=== PATIENT | female | born 1980 | race Caucasian/White ===

== ENCOUNTER 2020-06-24 12:48 | Outpatient (CLI) | payer BC, SELFPAY ==
--- NOTE | ~2020-06-24 | MMUS_ITS ---
EXAMINATION: MM diagnostic usman BI w earl, US breast LT limited HISTORY: Palpable lump and pain of the lower inner left breast TECHNIQUE: Craniocaudal, mediolateral, and mediolateral oblique 3-D tomosynthesis images of the breas ts were performed and synthetic 2-D images were generated. CAD analysis was submitted and interpreted . High resolution limited left breast ultrasound was performed. COMPARISON: None, baseline BREAST PARENCHYMAL COMPOSITION: The breasts are heterogeneously dense, which may obscure small masses . FINDINGS: MAMMOGRAPHIC FINDINGS: There is no evidence of suspicious mass, calcification, or architectural distortion in either breast to suggest malignancy. No mammographic correlate is identified for the reported lump and pain of the lower inner left breast. ULTRASOUND: There is no evidence of suspicious solid or cystic mass in the vicinity of the reported palpable abno rmality of concern. Two 5 mm cysts are seen at the 8:00 and 6:00 location seen in the nipple. IMPRESSION: 1. No suspicious mammographic or sonographic correlate is identified for the reported palpable abnorm ality of concern. Further evaluation at this time should be based on clinical assessment. Continued f ollow-up physical examination is recommended. 2. Recommend routine screening mammography beginning at age 40. BI-RADS Category 2: Benign finding(s). Reviewed, dictated and finalized at location A. IMPRESSION: 1. No suspicious mammographic or sonographic correlate is identified for the re ported palpable abnormality of concern. Further evaluation at this time should be based on clinical assessment. Continued follow-up physical examination is re commended. 2. Recommend routine screening mammography beginning at age 40. BI-RADS Category 2: Benign finding(s).
== END 2020-06-24 12:49 | disposition home or self-care (01) ==
PROVIDERS: Visit Provider Nurse Practitioner
DX: N64.4 Mastodynia (principal)
CPT/HCPCS: 76642; 77062; 77066; G0279

== ENCOUNTER 2022-09-13 14:36 | Outpatient (CLI) | payer BC, SELFPAY ==
--- NOTE | ~2022-09-13 | MM_ITS ---
EXAMINATION: MM screening usman BI w earl HISTORY: Screening mammogram TECHNIQUE: Craniocaudal and mediolateral oblique 3-D tomosynthesis images were obtained and synthetic 2-D images were generated. CAD analysis was submitted and interpreted. COMPARISON: 06/24/2020 bilateral diagnostic mammogram and limited left breast ultrasound BREAST PARENCHYMAL COMPOSITION: The breasts are heterogeneously dense, which may obscure small masses . FINDINGS: There is no evidence of suspicious mass, calcification, or architectural distortion to sugg est malignancy in either breast. There has been no suspicious interval change. IMPRESSION: 1. No mammographic evidence of malignancy. 2. Recommend routine screening mammography in one year. BI-RADS Category 1: Negative Reviewed, dictated and finalized at location A.
== END 2022-09-13 14:37 | disposition home or self-care (01) ==
LOC: ANHIMG 14:40
PROVIDERS: Visit Provider Obstetrics & Gynecology Gynecology
DX: Z12.31 Encounter for screening mammogram for malignant neoplasm of breast (principal)
CPT/HCPCS: 77063; 77067

== ENCOUNTER 2023-09-23 14:16 | Outpatient (CLI) | payer BC, SELFPAY ==
--- NOTE | ~2023-09-23 | MM_ITS ---
EXAMINATION: MM screening usman BI w earl HISTORY: Screening mammogram TECHNIQUE: Craniocaudal and mediolateral oblique 3-D tomosynthesis images were obtained and synthetic 2-D images were generated. CAD analysis was submitted and interpreted. COMPARISON: 09/13/2022, 06/24/2020 BREAST PARENCHYMAL COMPOSITION:Dense: The breasts are extremely dense, which lowers the sensitivity o f mammography. FINDINGS: No suspicious mass, calcification, or architectural distortion are identified in either sally ast to suggest malignancy. There has been no suspicious interval change. IMPRESSION: No mammographic evidence of malignancy. Recommend routine screening mammography in one year. BI-RADS Category 1: Negative Reviewed, dictated and finalized at location M.
--- NOTE | ~2023-09-23 | US_ITS ---
EXAMINATION: US pelvic complete w TV DATE: 09/23/2023 15:45 INDICATION: Pelvic pain. TECHNIQUE: Multiple transabdominal and endovaginal sonographic images of the pelvis were obtained. COMPARISON: None. FINDINGS: The uterus measures 9.7 x 4.3 x 4.5 cm. The endometrial complex measures 9-10 mm in thickness. 3 mm anechoic nabothian cyst at the cervix. The right ovary measures 2.6 x 2.6 x 1.7 cm. The left ovary me asures 2.4 x 2.0 x 1.5 cm. There are a few small anechoic cysts/follicles in both ovaries including a 1.4 cm likely dominant follicle at the left ovary. Vascular flow is identified in both ovaries on co jean claude Doppler. There is no free fluid in the pelvis. IMPRESSION: 1. Normal pelvic ultrasound with a few small anechoic cysts/follicles in both ovaries. Reviewed, dictated and finalized at location A. IMPRESSION: 1. Normal pelvic ultrasound with a few small anechoic cysts/follicles in both o varies.
== END 2023-09-23 14:17 | disposition home or self-care (01) ==
LOC: ANHIMG 14:22
PROVIDERS: Visit Provider Nurse Practitioner
DX: Z12.31 Encounter for screening mammogram for malignant neoplasm of breast (principal); R10.2 Pelvic and perineal pain
CPT/HCPCS: 76830; 76856; 77063; 77067